=== PATIENT | male | born 1980 | race Caucasian/White ===

== ENCOUNTER 2019-12-06 23:18 | Emergency (ER) | payer BC, SELFPAY ==
[2019-12-06 23:24] VITALS: BP 131/74; PULSE 88; RESP 24; TEMP 36.6; O2SAT 97; BMI 30.5
--- NOTE | 2019-12-07 00:20 | W.ED.BACK ---
HPI - Back Pain/Injury General: Chief Complaint: Back Pain/Injury Stated Complaint: back pain Time Seen by Provider: 12/07/19 00:03 History of Present Illness: HPI Narrative: Patient is a 39-year-old male comes to the ED with lower back pain that is radiating down left leg. Patient says he lifted a 50 pound battery the day before and noticed after couple hours his back was feeling a little sore Patient says pain started this morning when he woke up and it has slowly gotten worse. He rates it currently 10 out of 10 and describes the pain is on both right and left side of the lumbar spine and then pain shoots down left leg. denies any numbness tingling or weakness to lower extremities, bladder or bowel incontinence, pelvic anesthesia. Associated symptoms: Deny abdominal pain, chills, dysuria, fatigue, fever(s), hematuria, nausea or vomiting Review of Systems Const: Denies: fever(s), chills or fatigue Eyes: Denies: change in vision or eye discomfort ENMT: Denies: throat pain, odynophagia, nasal discharge or nasal congestion Card: Denies: chest pain, palpitations, edema, swelling of feet/ankles, dyspnea on exertion or orthopnea Resp: Denies: dyspnea, productive cough or non-productive cough GI: Denies: abdominal pain, nausea, vomiting, diarrhea, constipation or hematochezia : Denies: flank pain, difficulty urinating, dysuria or hematuria Musc: Reports: back pain (lumbar area with radiating pain down left leg); Denies: neck pain or extremity swelling Skin/Breast: Denies: rash or new lesions Neuro: Denies: headache(s), numbness in extremities or weakness in extremities Physical Exam Narrative: EXAM NARRATIVE: Patient is a 39-year-old male who is standing while putting a lot of his weight on back wheelchair when I entered the room. Patient stated sitting or laying makes his back stiffen up more makes moving more difficult. Const: COMMON NORMALS: patient oriented x3, healthy appearing and alert GENERAL APPEARANCE: cooperative; not comfortable (Patient appeared to be uncomfortable and in some pain.) HENMT: COMMON NORMALS: normocephalic HEAD & SCALP: normocephalic MOUTH: Normal oral and palatal mucosa present THROAT: posterior oropharynx normal and uvula midline Neck/C-Spine: COMMON NORMALS: supple GENERAL: Yes normal visual inspection Resp: COMMON NORMALS: normal respiratory effort, No retractions, No use of accessory muscles and clear to auscultation bilaterally AUSCULTATION: clear to auscultation bilaterally Cardio: COMMON NORMALS: regular rate, regular rhythm, S1 normal heart sound present, S2 normal heart sound present, No gallops present (Cardio), No clicks present (Cardio), No murmurs present (Cardio) and Peripheral pulses 2+ throughout RATE: regular rate RHYTHM: regular rhythm HEART SOUNDS: S1 normal heart sound present and S2 normal heart sound present PERIPHERAL PULSES: Peripheral pulses 2+ throughout GI: COMMON NORMALS: Normal to inspection, nondistended, normoactive bowel sounds present, Soft to palpation, non-tender and no masses PALPATION: Yes Soft to palpation : COMMON NORMALS: Yes no CVA tenderness BLADDER/KIDNEY EXAM: Yes no CVA tenderness Back/Pelvis: COMMON NORMALS: no CVA tenderness LUMBAR SPINE/LOWER BACK: Yes ROM limited, Yes pain with ROM and Yes paraspinal muscle tenderness (Pain radiated down left leg when pushing on lumbar region.) Lumbar paraspinal muscle tenderness: bilateral (Left side appeared to be more tender and muscle was firm and notted.) Bilateral lumbar paraspinal muscle tenderness: L4 and L5 Extremity: COMMON NORMALS: normal to inspection and no pedal edema Neuro: COMMON NORMALS: patient oriented x3 and moves all extremities SENSORIUM/ORIENTATION: Yes alert Skin: COMMON NORMALS: no rashes or lesions noted GENERAL SKIN EXAM: no rashes or lesions noted and dry skin Course Vital Signs: Vital signs: Vital Signs Temperature 97.8 F 12/06/19 23:24 Pulse Rate 68 12/07/19 01:08 Respiratory Rate 18 12/07/19 01:08 Blood Pressure 120/71 12/07/19 01:08 Pulse Oximetry 97 12/07/19 01:08 Discharge Plan Discharge Patient Disposition: Home, Self-Care Clinical Impression: Lumbar radiculopathy Condition: Stable Prescriptions: New Robaxin-750 750 mg tablet 750 mg PO Q8H Qty: 30 RF: 0 Medrol (Aron) 4 mg tablets,dose pack See Rx Instructions .ROUTE .COMPLEX Qty: 21 RF: 0 Discharge Orders: Discharge Order (Routine); Ordered 12/07/19 Ordered By: Thierry Marmolejo Referrals: Jan Jeffers DO [Primary Care Provider] - Discharge Diet: Regular Discharge Activity: Limit activity as instructed Patient Instructions: Lumbar Radiculopathy (ED) Activity Restrictions/Additional Instructions: Follow-up with medical provider as directed. You can take ibuprofen 800 mg dose 3 times a day. Remember to use caution when taking Robaxin because it is a muscle relaxer and can cause some drowsiness. Rest and apply ice on lower back as well. Stretch daily and massage sore muscles in the lower back. Take medications as prescribed. Return to the ER or your medical provider if condition worsens. Please read and understand discharge instructions. If any questions ask please. 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
[2019-12-07] MEDS: dexamethasone 10 mg/mL INJ IM (01:00)
[2019-12-07] MEDS: ketorolac 60 mg/2 mL INJ IM (01:01)
[2019-12-07] MEDS: orphenadrine 30 mg/mL Inj 2 mL 60 MG IM (01:01)
[2019-12-07 01:08] VITALS: BP 120/71; PULSE 68; RESP 18; O2SAT 97
[2019-12-07 01:13] VITALS: BP 120/71; PULSE 68; RESP 20; O2SAT 97
== END 2019-12-07 01:16 | disposition home or self-care (01) ==
PROVIDERS: Emergency Provider Physician Assistant; PCP Electrodiagnostic Medicine
DX: M54.16 Radiculopathy, lumbar region (principal)
CPT/HCPCS: 12345; 96372; 96375; 99281; 99283; J1100; J1885; J2360

== ENCOUNTER 2019-12-11 12:25 | Outpatient (CLI) | payer BC, SELFPAY ==
--- NOTE | 2019-12-11 12:30 | XR_ITS ---
WS: [id number] LUMBAR SPINE TECHNIQUE: 3 views of the lumbar spine CLINICAL INFORMATION: BACK PAIN,LUMBAR WITH RADICULOPATHY, SCIATICA ACUTE COMPARISON: FINDINGS: Five [id number] lumbar vertebral bodies. Mild lumbar curve convex left. Disc space narrowing wor se L4-L5 and L5-S1. Disc space heights are otherwise well preserved. No compression fractures. No spondylolisthesis. Visu alized sacroiliac joints are normal. Normal visualized soft tissues. Partially visualized bowel gas p attern is normal. XR/XR lumbar spine 2-3V* [id number] IMPRESSION: 1. Mild lumbar curve convex left. 2. Disc space narrowing worse L4-L5 and L5-S1. L4-5 disc space narrowing has p rogressed slightly since 2018. 3. Mild facet arthropathy L5-S1.
== END 2019-12-11 12:26 | disposition home or self-care (01) ==
LOC: RADWPI 12:29
PROVIDERS: Family Provider Electrodiagnostic Medicine; PCP Electrodiagnostic Medicine; Visit Provider Electrodiagnostic Medicine
DX: M54.16 Radiculopathy, lumbar region (principal); M54.30 Sciatica, unspecified side; M47.817 Spondylosis without myelopathy or radiculopathy, lumbosacral region
CPT/HCPCS: 72100

== ENCOUNTER 2020-05-20 13:24 | Outpatient (CLI) | payer BC, SELFPAY ==
--- NOTE | 2020-05-20 13:34 | MR_ITS ---
WS: [id number] MRI LUMBAR SPINE NONCONTRAST TECHNIQUE: Sagittal T1, T2 and STIR imaging. Axial T1 and T2 imaging. CLINICAL INFORMATION: LUMBAR BACK PAIN W/RADICULOPATHY COMPARISON: None. FINDINGS: Mild lumbar curve. No acute compression. Prominent central disc protrusion L4-5 with moderate to louisa re central canal stenosis with effacement of the ventral thecal sac. L1-L2: Normal. L2-L3: Normal. L3-L4: No significant disc bulging. Mild facet arthropathy. Spinal canal and foramen are patent. L4-L5: Prominent central disc protrusion measuring 9.5 mm in maximum AP dimension. Moderate to severe central canal stenosis. Mild to moderate facet arthropathy. Mild bilateral foraminal narrowing. L5-S1: Tiny shallow central protrusion. Slight effacement of ventral thecal sac. Spinal canal and for amen are patent. Mild facet arthropathy. Visualized pelvic bony structures: Normal. Paravertebral soft tissues: Normal. Left pericentral protrusion C6-7 seen on the customer program specialist imaging with mild central canal stenosis. This can be further evaluated with cervical spine MRI. MR/MR lumbar spine wo con* [id number] IMPRESSION: 1. Prominent central disc protrusion L4-5 with moderate to severe central quinten l stenosis and impingement subarticular recess bilaterally. Mild bilateral fora pricila narrowing at this level. 2. Left pericentral protrusion in the cervical spine seen on the customer program specialist imaging at C6-7 with mild central canal stenosis. Cervical spine can be further evalua tony with cervical spine MRI.
== END 2020-05-20 13:25 | disposition home or self-care (01) ==
PROVIDERS: Family Provider Electrodiagnostic Medicine; PCP Electrodiagnostic Medicine; Visit Provider Family Medicine
DX: M54.16 Radiculopathy, lumbar region (principal); M51.26 Other intervertebral disc displacement, lumbar region; M48.02 Spinal stenosis, cervical region
CPT/HCPCS: 72148

== ENCOUNTER 2020-05-27 01:01 | Emergency (ER) | payer OTHER, SELFPAY ==
[2020-05-27 01:09] VITALS: BP 144/68; PULSE 78; RESP 22; TEMP 36.5; O2SAT 96; BMI 31.1
[2020-05-27 01:25] VITALS: BP 137/68; PULSE 79; RESP 16; O2SAT 96
--- NOTE | 2020-05-27 01:30 | W.ED.BACK ---
HPI - Back Pain/Injury General: Chief Complaint: Back Pain/Injury Stated Complaint: back pain, numbness right leg Time Seen by Provider: 05/27/20 01:11 History of Present Illness: HPI Narrative: Mr. Uribe is a pleasant gentleman that has a herniated disc L4-L5 just recently found on MRI. He was working for [employer] this weekend and and lifted a 40 pound battery and twisted and he said his back got worse he went to the ER up in [place] he gave him steroids pain medication muscle relaxer. Told to follow back up here. Patient has appointment with his primary care doctor on Wednesday to go over MRI results and get a referral. Said he needs something to make it through till that day because he is hurting so bad he said muscle actually does not appear to be helping much he is having a lot of spasms. MD elicited complaint: back pain Pertinent past history: prior back pain Onset (ago): month(s) Timing: constant and progressively worsening Severity: severe Similar Symptoms Previously: Yes Quality: burning and aching Location: lumbar spine Radiation: right upper leg and right leg below the knee Exacerbating factors: movement, sitting upright and walking Relieving factors: immobilization Context: while lifting and turning/twisting Associated symptoms: Reports no associated symptoms; Deny abdominal pain, chills, fever(s), nausea or vomiting Treatments prior to arrival: cold therapy, other medications, prescription analgesics and other medications Work related injury: No Review of Systems Const: Denies: fever(s), chills or body aches Eyes: Denies: change in vision or blurry vision ENMT: Denies: throat pain or nasal congestion Card: Denies: chest pain or dyspnea on exertion Resp: Denies: dyspnea, productive cough or non-productive cough GI: Denies: abdominal pain, nausea or vomiting : Denies: difficulty urinating Musc: Reports: back pain; Denies: extremity pain Skin/Breast: Denies: rash Neuro: Denies: headache(s) Psych: Denies: anxiety or depression Oskar/Lymph: Denies: easy bruising Physical Exam Const: COMMON NORMALS: average body habitus and patient oriented x3 GENERAL APPEARANCE: cooperative HENMT: COMMON NORMALS: normocephalic HEAD & SCALP: normal to inspection and normocephalic FACE & SINUS: normal facial exam Eye: COMMON NORMALS: conjunctivae normal GENERAL EYE: appearance normal, both eyes and all related structures CONJUNCTIVA: Yes conjunctivae normal Neck/C-Spine: COMMON NORMALS: no JVD Chest: COMMONS NORMALS: normal inspection of the chest Resp: COMMON NORMALS: normal respiratory effort and clear to auscultation bilaterally AUSCULTATION: clear to auscultation bilaterally Cardio: COMMON NORMALS: no JVD, regular rate and regular rhythm RATE: regular rate RHYTHM: regular rhythm GI: COMMON NORMALS: Normal to inspection, nondistended, normoactive bowel sounds present Back/Pelvis: LUMBAR SPINE/LOWER BACK: Yes straight leg raise positive right Extremity: COMMON NORMALS: normal to inspection and full ROM Neuro: COMMON NORMALS: patient oriented x3 Course Vital Signs: Vital signs: Vital Signs Temperature 97.7 F 05/27/20 01:09 Pulse Rate 79 05/27/20 01:25 Respiratory Rate 16 05/27/20 01:25 Blood Pressure 137/68 05/27/20 01:25 Pulse Oximetry 96 05/27/20 01:25 Discharge Plan Discharge Patient Disposition: Home Clinical Impression: Protruded lumbar disc Condition: Stable Prescriptions: New Valium 5 mg tablet 5 mg PO TID PRN (Reason: muscle spasm) Qty: 14 RF: 0 Discontinued methocarbamol [Robaxin-750] 750 mg tablet 750 mg PO Q8H Qty: 30 RF: 0 No Action Medrol (Aron) 4 mg tablets,dose pack See Rx Instructions .ROUTE .COMPLEX Qty: 21 RF: 0 Discharge Orders: Discharge ED (Routine); Ordered 05/27/20 Ordered By: Antoni Lopez Referrals: Jan Jeffers DO [Primary Care Provider] - Discharge Diet: Usual diet Discharge Activity: Limit activity as instructed Patient Instructions: Lumbar Disc Herniation (ED), Lumbar Radiculopathy (ED) Activity Restrictions/Additional Instructions: Follow-up with medical provider as directed. Take medications as prescribed. Return to the ER or your medical provider if condition worsens. Please read and understand discharge instructions. If any questions ask please. No lifting over 10 pounds for next 4 weeks. Make sure you keep appoint with Dr. 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
[2020-05-27] MEDS: orphenadrine 30 mg/mL Inj 2 mL 60 MG IM (01:32)
[2020-05-27] MEDS: morphine 4 mg/mL SDV 1 mL IM (01:32)
[2020-05-27 01:59] VITALS: BP 143/62; PULSE 70; RESP 17; O2SAT 95
== END 2020-05-27 01:59 | disposition home or self-care (01) ==
PROVIDERS: Emergency Provider Nurse Practitioner Family; PCP Electrodiagnostic Medicine
DX: M51.26 Other intervertebral disc displacement, lumbar region (principal)
CPT/HCPCS: 12345; 96372; 99281; 99283; J2270; J2360

== ENCOUNTER 2021-08-13 11:22 | Outpatient (CLI) | payer OTHER, SELFPAY ==
--- NOTE | 2021-08-13 11:32 | MR_ITS ---
WS: [id number] MRI LUMBAR SPINE WITH CONTRAST TECHNIQUE: Sagittal T1, T2 and STIR imaging. Axial T1 and T2 imaging. Post gadolinium imaging was obt ained. 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 This can be further evaluated with cervical spine MRI. Additional small central protrusions at T1-T2 and T2-T3. L1-L2: Normal. L2-L3: Mild annular bulging. Mild facet arthropathy. Spinal canal and foramen are patent. L3-L4: Mild annular bulging. Mild facet arthropathy. Spinal canal and foramen are patent. L4-L5: Shallow central disc protrusion with impingement subarticular recess and traversing L5 nerve r oots bilaterally. Mild central canal stenosis. Moderate facet arthropathy. Prior laminectomy defects. Eccentric disc bulging with moderate RIGHT and mild LEFT foraminal narrowing. L5-S1: Mild annular bulging. Tiny annular tear. Slight effacement of ventral thecal sac. Mild LEFT an d no significant RIGHT foraminal narrowing. Spinal canal is patent. Degenerative endplate-type changes L4-L5. Postoperative changes L4-L5 laminectomy with normal postope rative enhancement. Visualized pelvic bony structures: Normal. Paravertebral soft tissues: Normal. MR/MR lumbar spine wo/w con [id number] IMPRESSION: 1. Interval postoperative changes L4-L5 laminectomy with spinal canal decompre ssion is new from previous. Evidence of partial discectomy. Enhancing granulati on tissue in the ventral epidural space with slight narrowing of the subarticul ar recess bilaterally. 2. Normal postoperative enhancement along the L4-L5 surgical corridor. No drai nable fluid collections or abscess. 3. Moderate RIGHT L4-L5 foraminal narrowing appears unchanged. 4. Mild LEFT L5-S1 bony foraminal narrowing. 5. LEFT pericentral protrusion at C6-C7 seen on the supply officer imaging with mild ce ntral canal stenosis and contact of the cervical cord. This can be further eval uated with cervical spine MRI. This is similar in appearance to May 20 20.
[2021-08-13] MEDS: gadobenate dimeglumine 20 mL vial IV (12:53)
== END 2021-08-13 11:23 | disposition home or self-care (01) ==
LOC: RAD 11:23
PROVIDERS: PCP Electrodiagnostic Medicine; Visit Provider Orthopaedic Surgery
DX: M47.816 Spondylosis without myelopathy or radiculopathy, lumbar region (principal); M50.223 Other cervical disc displacement at C6-C7 level
CPT/HCPCS: 72158

== ENCOUNTER 2021-11-04 10:29 | Outpatient (RCR) | payer OTHER, SELFPAY | END 2021-11-04 23:59 | disposition home or self-care (01) | LOC: SPT 10:29 | PROVIDERS: PCP Electrodiagnostic Medicine; Referring Provider Orthopaedic Surgery; Visit Provider Orthopaedic Surgery | DX: M47.816 Spondylosis without myelopathy or radiculopathy, lumbar region (principal) | CPT/HCPCS: 97161 ==

== ENCOUNTER 2021-11-05 06:00 | Outpatient (RCR) | payer OTHER, SELFPAY | END 2021-12-04 23:59 | disposition home or self-care (01) | LOC: SPT 06:00 | PROVIDERS: PCP Electrodiagnostic Medicine; Referring Provider Orthopaedic Surgery; Visit Provider Orthopaedic Surgery | DX: Z47.89 Encounter for other orthopedic aftercare (principal); Z98.1 Arthrodesis status; M47.816 Spondylosis without myelopathy or radiculopathy, lumbar region | CPT/HCPCS: 97110 ==

== ENCOUNTER 2021-12-05 06:00 | Outpatient (RCR) | payer OTHER, SELFPAY | END 2022-01-04 23:59 | disposition home or self-care (01) | LOC: SPT 06:00 | PROVIDERS: PCP Electrodiagnostic Medicine; Referring Provider Orthopaedic Surgery; Visit Provider Orthopaedic Surgery | DX: M47.816 Spondylosis without myelopathy or radiculopathy, lumbar region (principal) | CPT/HCPCS: 97110 ==

== ENCOUNTER 2022-01-05 06:00 | Outpatient (RCR) | payer OTHER, SELFPAY | END 2022-02-04 23:59 | disposition home or self-care (01) | LOC: SPT 06:00 | PROVIDERS: PCP Electrodiagnostic Medicine; Visit Provider Orthopaedic Surgery | DX: M47.816 Spondylosis without myelopathy or radiculopathy, lumbar region (principal) | CPT/HCPCS: 97032; 97110 ==

== ENCOUNTER 2022-02-05 06:00 | Outpatient (RCR) | payer OTHER, SELFPAY | END 2022-03-06 23:59 | disposition home or self-care (01) | LOC: SPT 06:00 | PROVIDERS: PCP Electrodiagnostic Medicine; Visit Provider Orthopaedic Surgery | DX: Z47.89 Encounter for other orthopedic aftercare (principal); M47.816 Spondylosis without myelopathy or radiculopathy, lumbar region | CPT/HCPCS: 97110 ==

== ENCOUNTER → 2022-03-17 10:11 | Outpatient (BNVA) | payer BC, SELFPAY | PROVIDERS: PCP Family Medicine; Visit Provider Family Medicine | DX: E03.9 Hypothyroidism, unspecified (principal); Z51.81 Encounter for therapeutic drug level monitoring; R25.2 Cramp and spasm; G47.30 Sleep apnea, unspecified; R20.0 Anesthesia of skin | CPT/HCPCS: 80053; 83735; 84439; 84443; 84481; 85025 ==

== ENCOUNTER → 2022-05-18 11:57 | Outpatient (BNVA) | payer BC, SELFPAY | PROVIDERS: PCP Family Medicine; Visit Provider Family Medicine | DX: R74.01 Elevation of levels of liver transaminase levels (principal); E03.9 Hypothyroidism, unspecified; Z51.81 Encounter for therapeutic drug level monitoring; G47.30 Sleep apnea, unspecified; R20.0 Anesthesia of skin; M54.16 Radiculopathy, lumbar region; K21.9 Gastro-esophageal reflux disease without esophagitis | CPT/HCPCS: 80053; 84439; 84443 ==

== ENCOUNTER 2022-07-13 20:00 | Outpatient (CLI) | payer BC, SELFPAY | END 2022-07-13 20:01 | disposition home or self-care (01) | LOC: SLEEP 07-14 06:31 | PROVIDERS: PCP Family Medicine; Visit Provider Internal Medicine | DX: G47.33 Obstructive sleep apnea (adult) (pediatric) (principal) | CPT/HCPCS: 95811 ==

== ENCOUNTER → 2022-08-24 10:35 | Outpatient (BNVA) | payer BC, SELFPAY | PROVIDERS: PCP Family Medicine; Visit Provider Family Medicine | DX: E03.9 Hypothyroidism, unspecified (principal); M25.50 Pain in unspecified joint; G47.30 Sleep apnea, unspecified; R74.01 Elevation of levels of liver transaminase levels; R20.0 Anesthesia of skin | CPT/HCPCS: 84439; 84443; 84481; 85651; 86038; 86141; 86431 ==

== ENCOUNTER → 2023-07-02 10:46 | Outpatient (BNVA) | payer OTHER, BC, SELFPAY | PROVIDERS: PCP Family Medicine; Visit Provider Nurse Practitioner | DX: S99.912A Unspecified injury of left ankle, initial encounter (principal); W00.0XXA Fall on same level due to ice and snow, initial encounter | CPT/HCPCS: 73610 ==

== ENCOUNTER → 2023-11-29 11:17 | Outpatient (BNVA) | payer BC, SELFPAY | PROVIDERS: PCP Family Medicine; Visit Provider Family Medicine | DX: Z51.81 Encounter for therapeutic drug level monitoring (principal); Z13.220 Encounter for screening for lipoid disorders; E03.9 Hypothyroidism, unspecified; E55.9 Vitamin D deficiency, unspecified; M54.16 Radiculopathy, lumbar region; G47.30 Sleep apnea, unspecified; F32.A Depression, unspecified | CPT/HCPCS: 80053; 80061; 82306; 84439; 84443; 85025 ==

== ENCOUNTER → 2024-04-11 12:57 | Outpatient (BNVA) | payer BC, SELFPAY | PROVIDERS: PCP Family Medicine; Visit Provider Family Medicine | DX: Z13.220 Encounter for screening for lipoid disorders (principal); E55.9 Vitamin D deficiency, unspecified; E03.9 Hypothyroidism, unspecified | CPT/HCPCS: 80061; 82306; 84439; 84443 ==